=== PATIENT | female | born 1965 | race Two or more races ===

== ENCOUNTER 2019-10-14 23:14 | Inpatient (IN) | payer BC ==
[~2019-10-14] VITALS: Ht 165.1 cm; Wt 78.0 kg
[2019-10-15] LABS: Basophils # (auto) 0.1 uL; Basophils % (auto) 0.6 % (0.0-2.0); Eosinophils # (auto) 0.2 uL; Eosinophils % (auto) 2.4 % (0.0-7.0); Hematocrit 39.8 % (36.0-46.0); Hemoglobin 13.2 g/dL (12.2-16.2); Lymphocytes # (auto) 3.9 uL; Lymphocytes % (auto) 45.4 % (10.0-50.0); Mean Corpuscular Hemoglobin 30.3 pg (28.0-32.0); Mean Corpuscular Hgb Conc. 33.1 g/dL (32.0-36.0); Mean Corpuscular Volume 91.4 fL (80.0-100.0); Monocytes # (auto) 0.8 uL; Monocytes % (auto) 9.3 % (0.0-12.0); Neutrophils # (auto) 3.6 uL; Neutrophils % (auto) 42.3 % (37.0-80.0); Nucleated Red Blood Cells % 0.1 %; Platelet Count (auto) 275 10^3/uL (140-450); Red Blood Cells 4.35 10^6/uL (4.0-5.20); Red Cell Distribution Width 13.9 % (11.8-14.3); White Blood Cell 8.6 10^3/uL (4.4-10.8)
[2019-10-15 00:16] LABS: Albumin 3.4 g/dL (3.4-5.0); Anion Gap 5 (5-15); Blood Urea Nitrogen 11 mg/dL (7-18); Calcium 8.8 mg/dL (8.5-10.1); Carbon Dioxide 27 mmol/L (21-32); Chloride 109 mmol/L (98-107); Glucose 89 mg/dL (74-106); Lipase 237 U/L (73-393); Magnesium 2.4 mg/dL (1.6-2.6); Potassium 4.2 mmol/L (3.5-5.1); Sodium 141 mmol/L (136-145)
[2019-10-15 00:19] LABS: Alanine Aminotransferase 53 U/L (13-56); Amylase 93 U/L (25-115); Aspartate Aminotransferase 38 U/L (15-37); BUN/Creatinine Ratio 17.5; GFR African American 126 mL/min; GFR Non-African American 104 mL/min
[2019-10-15 00:23] LABS: Alkaline Phosphatase 115 U/L (45-117); Bilirubin, Total 0.4 mg/dL (0.2-1.0); Total Protein 8.3 g/dL (6.4-8.2)
[2019-10-15] MEDS ORDERED: ONDANSETRON ODT 4 MG TAB PO ONE (01:00)
[2019-10-15 01:26] LABS: Urine Bacteria NONE SEEN /hpf (None Seen); Urine Blood Negative /uL (Negative); Urine Mucus FEW (None Seen); Urine Specific Gravity 1.017 (1.001-1.035); Urine WBC 1 /hpf (0 - 5)
[2019-10-15] MEDS ORDERED: methylPREDNISolone SOD SUCC 125 MG/2 ML VL IV ONE (06:00)
[2019-10-15] MEDS ORDERED: metroNIDAZOLE 500MG/100ML 100 ML IV ONE (06:30)
[2019-10-15] MEDS ORDERED: TEMAZEPAM 15 MG CAP PO PRN (06:30)
[2019-10-15] MEDS ORDERED: ACETAMINOPHEN 325 MG TAB PO PRN (06:30)
[2019-10-15] MEDS: HYDROcodone-ACET 5/325MG TAB PO PRN ×2 (07:24→13:37)
[2019-10-15] MEDS: ONDANSETRON HCL 4 MG/2 ML VIAL IV PRN ×2 (07:39→13:36)
[2019-10-15 08:23] LABS: Amylase 83 U/L (25-115); Lipase 233 U/L (73-393)
[2019-10-15 08:30] VITALS: BP 111/59
[2019-10-15] MEDS ORDERED: methylPREDNISolone SOD SUCC 125 MG/2 ML VL IV SCH (10:00)
[2019-10-15 10:04] LABS: Alcohol, Urine < 3.0 mg/dL (0-5); Amphetamine Screen, Urine NEGATIVE (NEGATIVE); Barbiturate Scree,Urine NEGATIVE (NEGATIVE); Benzodiazephine Screen, Urine NEGATIVE (NEGATIVE); Cannabinoid Screen, Urine NEGATIVE (NEGATIVE); Cocaine Screen, Urine NEGATIVE (NEGATIVE); Opiate Scree,Urine NEGATIVE (NEGATIVE); Phencyclidine Screen, Urine NEGATIVE (NEGATIVE)
[2019-10-15] MEDS: PANTOPRAZOLE 40 MG TAB PO SCH (11:06)
[2019-10-15] MEDS ORDERED: SODIUM CHL 0.9% IV SCH (11:15)
[2019-10-15] MEDS ORDERED: METHYLPREDNISOLONE SOD SUCC IV SCH (11:15)
[2019-10-15] MEDS: SULFASALAZINE 500 MG TAB PO SCH ×3 (13:36→20:51)
[2019-10-15] MEDS: metroNIDAZOLE 500MG/100ML 100 ML IV SCH ×2 (13:48→20:51)
[2019-10-15] MEDS ORDERED: GOLYTELY 4L KIT PO ONE (15:30)
[2019-10-15] MEDS ORDERED: HYDROmorphone HCL 2 MG/ML VL IV PRN (15:30)
[2019-10-15] MEDS ORDERED: CIME200T6 PO (15:51)
--- NOTE | 2019-10-15 16:30 | NUR ---
Received a report from Luisana GAYTAN.
--- NOTE | 2019-10-15 16:31 | NUR ---
Opening Shift Note Assumed care of patient, awake and alert. No S/S of distress/SOB or pain. Instructed on POC and to call for assist PRN, will continue to monitor for changes Q1hr and PRN.
--- NOTE | 2019-10-15 16:45 | NUR ---
Informed a patient again that patient needs to be NPO AMN for colonoscopy and patient needs to drink Golyle 2/3 today and 1/3 tomorrow morning , patient verbalized understanding , consent signed.
[2019-10-15 18:59] LABS: INR 1.01 (0.9-1.15); Partial Thromboplastin Time 29.1 sec (23.64-32.05)
[2019-10-15 23:16] VITALS: BP 118/61
[2019-10-16] MEDS: HYDROcodone-ACET 5/325MG TAB PO PRN (03:50)
[2019-10-16 05:46] VITALS: BP 106/50
[2019-10-16] MEDS: metroNIDAZOLE 500MG/100ML 100 ML IV SCH ×3 (05:59→21:45)
[2019-10-16] MEDS ORDERED: GOLYTELY 4L KIT PO ONE (06:00)
[2019-10-16] MEDS: SULFASALAZINE 500 MG TAB PO SCH ×4 (06:00→21:45)
[2019-10-16 06:40] LABS: Basophils # (auto) 0 uL; Basophils % (auto) 0.1 % (0.0-2.0); Eosinophils # (auto) 0 uL; Hematocrit 37.6 % (36.0-46.0); Hemoglobin 12.5 g/dL (12.2-16.2); Lymphocytes # (auto) 2.4 uL; Lymphocytes % (auto) 15.4 % (10.0-50.0); Mean Corpuscular Hemoglobin 30.3 pg (28.0-32.0); Mean Corpuscular Hgb Conc. 33.3 g/dL (32.0-36.0); Mean Corpuscular Volume 90.8 fL (80.0-100.0); Monocytes # (auto) 0.8 uL; Monocytes % (auto) 5.3 % (0.0-12.0); Neutrophils # (auto) 12.5 uL; Neutrophils % (auto) 79.2 % (37.0-80.0); Nucleated Red Blood Cells % 0.1 %; Platelet Count (auto) 265 10^3/uL (140-450); Red Blood Cells 4.14 10^6/uL (4.0-5.20); Red Cell Distribution Width 13.7 % (11.8-14.3); White Blood Cell 15.9 10^3/uL (4.4-10.8)
[2019-10-16] MEDS: ONDANSETRON HCL 4 MG/2 ML VIAL IV PRN (06:40)
[2019-10-16 06:57] LABS: BUN/Creatinine Ratio 15.3; Calcium 8.3 mg/dL (8.5-10.1); Potassium 3.8 mmol/L (3.5-5.1)
[2019-10-16] MEDS ORDERED: SODIUM CHLORIDE LOCK 10 ML ONE (08:35)
[2019-10-16] MEDS ORDERED: FLUMAZENIL 0.1 MG/ML INJ 10ML MDV IV ONE (08:35)
[2019-10-16] MEDS ORDERED: NALOXONE HCL 0.4 MG/ML VIAL ONE (08:35)
[2019-10-16] MEDS ORDERED: diphenhdrAMINE HCL 50 MG/1 ML VL ONE (08:36)
[2019-10-16] MEDS: MIDAZOLAM HCL 5 MG/ML-1ML VIAL ONE ×2 (09:04→09:10)
[2019-10-16] MEDS: fentaNYL CITRATE 100 MCG/2 ML VL ONE ×2 (09:04→09:10)
[2019-10-16 09:43] VITALS: BP 124/62
[2019-10-16] MEDS: PANTOPRAZOLE 40 MG TAB PO SCH (09:54)
[2019-10-16] MEDS: predniSONE 20 MG TAB PO SCH (09:54)
[2019-10-16 13:00] VITALS: BP 108/62
[2019-10-16 17:00] VITALS: BP 120/63
--- NOTE | 2019-10-16 20:10 | NUR ---
RECEIVED PATIENT IN BED, AAOX4. NO DISTRESS NOTED. AFEBRILE. NO SOB NOTED. POCS DISCUSSED WITH PATIENT AND SHOWED UNDERSTANDING. BED KEPT ON LOWEST POSITION. SIDE RAILS UP. CALL LIGHT/TABLE IN REACH. KEPT COMFORTABLE.
[2019-10-16 21:35] VITALS: BP 114/67
[2019-10-17 05:20] VITALS: BP 93/53
[2019-10-17] MEDS: SULFASALAZINE 500 MG TAB PO SCH ×2 (06:05→11:56)
[2019-10-17] MEDS: metroNIDAZOLE 500MG/100ML 100 ML IV SCH ×2 (06:05→14:00)
--- NOTE | 2019-10-17 06:14 | NUR ---
ON BED, AWAKE. STABLE. NO DISTRESS NOTED. FOR MORE CARE AND MANAGEMENT.
[2019-10-17 09:00] VITALS: BP 111/60
[2019-10-17] MEDS: predniSONE 20 MG TAB PO SCH (09:06)
[2019-10-17] MEDS: PANTOPRAZOLE 40 MG TAB PO SCH (09:06)
[2019-10-17 13:00] VITALS: BP 114/63
[2019-10-17 13:56] VITALS: BP 111/60
--- NOTE | 2019-10-17 15:50 | NUR ---
Discharge instructions given as ordered. Encourage to follow up with PMD(Follow up with PCP and GI doctor in [facility]) as instructed. All questions and concerns addressed. Patient verbalized understanding. Medication reconciliation form completed and copy given to patient. IV removed with catheter intact, pressure dressing applied. Patient taken to vehicle via wheelchair with all personal belongings, accompanied by staff and family member. No distress noted at time of departure.
== END 2019-10-17 15:50 | disposition home or self-care (01) | DRG 387 ==
LOC: ER 23:14 → OVERFLOW 23:15 → CENTRAL 10-15 08:18
PROVIDERS: ADMIT Nurse Practitioner; ATTEND Internal Medicine
PROC: 0DB88ZX Excision of Small Intestine, Via Natural or Artificial Opening Endoscopic, Diagnostic (ICD-10-PCS; principal; 2019-10-16 08:58)
DX: K50.90 Crohn's disease, unspecified, without complications (principal); E66.9 Obesity, unspecified; K64.8 Other hemorrhoids; Z90.49 Acquired absence of other specified parts of digestive tract; Z90.710 Acquired absence of both cervix and uterus; I88.0 Nonspecific mesenteric lymphadenitis; Z68.28 Body mass index [BMI] 28.0-28.9, adult
CPT/HCPCS: 36415; 45380; 71045; 74176; 80048; 80053; 80307; 81001; 82150; 83690; 83735; 84484; 85025; 85610; 85730; 86850; 86900; 86901; 93005; 96365; 96375; G0378; J2250; J2405; J3490; Q0162